=== PATIENT | female | born 1985 | race Caucasian/White ===

== ENCOUNTER → 2017-01-19 | Outpatient (CLI) | payer BC ==
[~2017-01-19] MED LIST: ASMANEX HF100 MCG/Ac IH; CELEXA 20MG20 MG/TAB PO; CYMBALTA 20MG20 MG PO; LYRICA 100MG C100 M1 PO; NORCO 325 MG-51 TAB PO
== END ==
LOC: MHCPAIN 13:49
DX: G89.29 Other chronic pain (principal); M54.16 Radiculopathy, lumbar region; M53.3 Sacrococcygeal disorders, not elsewhere classified; M96.1 Postlaminectomy syndrome, not elsewhere classified; M54.14 Radiculopathy, thoracic region
CPT/HCPCS: G0463

== ENCOUNTER 2017-02-02 09:01 | Outpatient (CLI) | payer BC ==
[2017-02-02] VITALS (7 sets, daily range): BP systolic 116–121; BP diastolic 71–79; PULSE 49–55
[~2017-02-02] VITALS: Ht 165.1 cm; Wt 73.2 kg
[2017-02-02] MEDS ORDERED: MELATONIN5 M1 SL (09:30)
[2017-02-02] MEDS ORDERED: BENADRYL25 M2 PO (09:31)
== END 2017-02-02 11:45 | disposition home or self-care (01) ==
LOC: COL.RAD 09:01
DX: M54.16 Radiculopathy, lumbar region (principal); M54.14 Radiculopathy, thoracic region; M79.5 Residual foreign body in soft tissue; M96.1 Postlaminectomy syndrome, not elsewhere classified; M51.84 Other intervertebral disc disorders, thoracic region; Q76.49 Other congenital malformations of spine, not associated with scoliosis
CPT/HCPCS: Q9965

== ENCOUNTER → 2017-03-18 | Outpatient (CLI) | payer BC ==
[~2017-03-18] MED LIST changes: +BENADRYL25 M2 PO; +MELATONIN5 M1 SL
== END ==
LOC: MHCPAIN 08:08
DX: G89.29 Other chronic pain (principal); M47.817 Spondylosis without myelopathy or radiculopathy, lumbosacral region; M53.3 Sacrococcygeal disorders, not elsewhere classified; M47.24 Other spondylosis with radiculopathy, thoracic region
CPT/HCPCS: G0463

== ENCOUNTER → 2017-04-21 | Outpatient (CLI) | payer BC | LOC: MHCPAIN 09:56 | DX: M47.24 Other spondylosis with radiculopathy, thoracic region (principal) | CPT/HCPCS: J0735; J1100; J2250; J3010; Q9967 ==

== ENCOUNTER → 2017-05-10 | Outpatient (CLI) | payer BC | LOC: MHCPAIN 11:04 | DX: G89.29 Other chronic pain (principal); M47.24 Other spondylosis with radiculopathy, thoracic region; M96.1 Postlaminectomy syndrome, not elsewhere classified | CPT/HCPCS: G0463 ==

== ENCOUNTER → 2017-06-02 | Outpatient (CLI) | payer BC | LOC: MHCPAIN 09:42 | DX: M47.24 Other spondylosis with radiculopathy, thoracic region (principal); M60.222 Foreign body granuloma of soft tissue, not elsewhere classified, left upper arm | CPT/HCPCS: J0735; J1040; J1100; J2250; J3010; Q9967 ==

== ENCOUNTER → 2017-06-15 | Outpatient (CLI) | payer BC | LOC: MHCPAIN 10:32 | DX: G89.29 Other chronic pain (principal); M47.14 Other spondylosis with myelopathy, thoracic region; M96.1 Postlaminectomy syndrome, not elsewhere classified | CPT/HCPCS: G0463 ==

== ENCOUNTER → 2018-01-10 | Outpatient (CLI) | payer BC | LOC: MHCPAIN 09:46 | DX: G89.29 Other chronic pain (principal); M96.1 Postlaminectomy syndrome, not elsewhere classified; M47.814 Spondylosis without myelopathy or radiculopathy, thoracic region; M54.14 Radiculopathy, thoracic region | CPT/HCPCS: G0463 ==

== ENCOUNTER → 2018-04-11 | Outpatient (CLI) | payer BC | LOC: MHCPAIN 09:48 | DX: G89.29 Other chronic pain (principal); M96.1 Postlaminectomy syndrome, not elsewhere classified; M47.814 Spondylosis without myelopathy or radiculopathy, thoracic region; M54.14 Radiculopathy, thoracic region | CPT/HCPCS: G0463 ==